=== PATIENT | male | born 1965 | race Caucasian/White ===

== ENCOUNTER 2018-06-20 18:05 | Emergency (ER) | payer SELFPAY ==
[~2018-06-20] VITALS: Ht 188 cm; Wt 93.3 kg
[2018-06-20 18:13] VITALS: BP 181/115
[2018-06-20] MEDS ORDERED: LISINOPRIL 20 MG TABLET ONE (18:40)
[2018-06-20] MEDS ORDERED: LISINOPRIL 10 MG TABLET ONE (18:42)
[2018-06-20] MEDS ORDERED: LISI2.5T PO (18:58)
[2018-06-20] MEDS ORDERED: LISINOPRIL 10 MG TABLET PO ONE (19:00)
== END 2018-06-20 19:01 | disposition home or self-care (01) ==
LOC: ED 18:52
DX: J20.9 Acute bronchitis, unspecified (principal); B96.89 Other specified bacterial agents as the cause of diseases classified elsewhere; I10 Essential (primary) hypertension; Z88.8 Allergy status to other drugs, medicaments and biological substances
CPT/HCPCS: 99283

== ENCOUNTER 2018-11-22 11:41 | Emergency (ER) | payer SELFPAY ==
[~2018-11-22] VITALS: Ht 185.4 cm; Wt 83.1 kg
[~2018-11-22 11:41] MED LIST: LISI2.5T PO
[2018-11-22 11:54] VITALS: BP 190/121
[2018-11-22] MEDS ORDERED: HYDROcodone/APAP 5/325 TABLET ONE (12:10)
[2018-11-22] MEDS ORDERED: HYDROcodone/APAP 5/325 TABLET PO ONE (12:30)
== END 2018-11-22 13:13 | disposition home or self-care (01) ==
LOC: ED 13:10
DX: M65.271 Calcific tendinitis, right ankle and foot (principal); F17.210 Nicotine dependence, cigarettes, uncomplicated; I10 Essential (primary) hypertension
CPT/HCPCS: 99283

== ENCOUNTER 2018-12-23 13:41 | Emergency (ER) | payer BC, OTHER ==
[~2018-12-23] VITALS: Ht 188 cm; Wt 87.0 kg
[2018-12-23 14:05] VITALS: BP 166/120
--- NOTE | 2018-12-23 14:15 | NUR ---
Pt BIB EMS from [facility] for rectal/lower abd pain. Pt states he feels the need to urinate and have a BM but is unable to x 4 hours. Pt states normal BM 24 hours ago. denies FB.
== END 2018-12-23 15:27 ==
LOC: ED 15:21
DX: K59.00 Constipation, unspecified (principal)
CPT/HCPCS: 99283

== ENCOUNTER 2020-01-12 20:37 | Emergency (ER) | payer OTHER ==
[~2020-01-12] VITALS: Ht 188 cm; Wt 96.1 kg
[2020-01-12 20:43] VITALS: BP 173/120
--- NOTE | 2020-01-12 21:24 | NUR ---
PT TO ROOM FROM LOBBY AT THIS TIME.
== END 2020-01-12 21:59 | disposition home or self-care (01) ==
LOC: ED 21:43
DX: L03.116 Cellulitis of left lower limb (principal); I10 Essential (primary) hypertension
CPT/HCPCS: 99283